=== PATIENT | male | born 1940 | race African-American/Black ===

== ENCOUNTER 2024-05-25 09:06 | Inpatient (IN) | payer OTHER ==
[2024-05-25 10:05] LABS: Hematocrit 32.6 % (38.8-50.0); Hemoglobin 10.2 g/dL (13.5-17.5); MDiff Complete? YES; Mean Corpuscular HGB CONC 31.3 g/dL (32.0-36.0); Mean Corpuscular Hemoglobin 20.6 pg (27.0-33.0); Platelet Count 135 10x3/uL (150-450); RBC Distribution Width 17.5 % (11.5-14.5); Red Blood Cell (RBC) Count 4.94 10x6/uL (4.32-5.72); White Blood Cell (WBC) Count 10.5 10x3/uL (3.5-10.5)
[2024-05-25 10:10] LABS: ALT (SGPT) 36 U/L (8-55); AST (SGOT) 30 U/L (5-34); Albumin 2.9 g/dL (3.4-4.8); Alkaline Phosphatase 108 U/L (40-110); Anion Gap 14 mmol/L (10-20); BUN (Urea Nitrogen) 20 mg/dL (8.4-25.7); Bilirubin, Total 1.9 mg/dL (0.2-1.2); Calc. Creatinine Clearance 0 mL/min (70-130); Carbon Dioxide 27 mmol/L (23-31); Chloride 102 mmol/L (98-107); Estimated GFR 42; Glucose 117 mg/dL (83-110); Magnesium 1.7 mg/dL (1.6-2.6); Potassium 2.8 mmol/L (3.5-5.1); Protein, Total 6.9 g/dL (5.8-8.1); Sodium 140 mmol/L (136-145)
[2024-05-25 10:13] LABS: Troponin I 0.034 ng/mL (< 0.028)
[2024-05-25 10:20] LABS: Lymphocytes 7 % (21-51); Monocytes 4 % (0-10); Neutrophil 83 % (42-75); Reactive Lymphocytes 6 % (0-10)
[2024-05-25 10:23] LABS: Anisocytosis SLIGHT = 6-15 cells (100X) (0-5/hpf); Giant Platelets SLIGHT HPF (0-5); Hypochromia SLIGHT = 6-15 cells (100X) (0-5/hpf); Large Platelets SLIGHT (None Seen); Microcytosis SLIGHT = 6-15 cells (100X) (0-5/hpf); Ovalocytes SLIGHT = 2-5 cells (100X) (0-1/hpf); Poikilocytosis SLIGHT = 6-15 cells (100X) (0-5/hpf)
[2024-05-25 10:24] LABS: Platelet Adequacy Comment Appears Decreased
[2024-05-25] MEDS ORDERED: Potassium Chloride 20 MEQ TAB ONE (10:30)
[2024-05-25 11:37] LABS: Bilirubin Neg (Negative); Blood, Urine 10 (Negative); Clarity Slightly Cloudy (Clear); Glucose, Urine (Dipstick) Normal (Negative); Ketone, Urine Negative (Negative); Leukocyte 500 (Negative); Nitrite Negative (Negative); Protein, Urine (Dipstick) 15 mg/dl (Neg-Trace); Specific Gravity, Urine 1.015 (1.005-1.030)
[2024-05-25] MEDS ORDERED: LevoFLOXacin 750 mg/D5W 150 ml Premix Bag ONE (11:49)
[2024-05-25 11:55] LABS: Bacteria/HPF 4+ HPF (None Seen); CAUTI Indications for Culture Alt mental st,lethar; RBC/HPF 0-3 HPF (0-3); Squamous Epithelial 0-3 HPF (0-3); Transitional Epithelial 0-3 HPF (None Seen); WBC/HPF Greater than 50 HPF (0-3)
[2024-05-25 11:56] LABS: Urine Culture Reflex Yes Yes
[2024-05-25] MEDS ORDERED: Senokot S 8.6-50 MG TAB PO PRN (12:45)
[2024-05-25] MEDS ORDERED: Sodium Chloride 0.9% 1,000 ML IV SCH (12:45)
[2024-05-25] MEDS ORDERED: traMADol HCl 50 MG TAB PO PRN (12:45)
[2024-05-25] MEDS ORDERED: Glucagon 1 MG/ML KIT IM PRN (13:22)
[2024-05-25] MEDS ORDERED: Insulin Lispro 100 UNIT/ML 10 ML VIAL SC PRN (13:22)
[2024-05-25] MEDS ORDERED: Dextrose 50% Abboject 50 ML SYRINGE SLOW IVP PRN (13:22)
[2024-05-25] MEDS ORDERED: Dextrose 5% in Water 1,000 ML IV PRN (13:22)
[2024-05-25 14:17] LABS: Troponin I 0.032 ng/mL (< 0.028)
[2024-05-25] MEDS: NS 0.9% w/ 40 MEQ KCL 1,000 ML IV SCH (15:03)
[2024-05-25 15:39] VITALS: BMI 24.4
[2024-05-25 17:36] LABS: Troponin I 0.042 ng/mL (< 0.028)
[2024-05-25] MEDS ORDERED: Sterile Water 10 ML VIAL FS PRN (22:00)
[2024-05-25] MEDS: Famotidine 20 MG TAB PO SCH (22:00)
[2024-05-25] MEDS: Sterile Water 10 ML ONE (23:20)
[2024-05-25] MEDS: Ziprasidone 20 MG VIAL IM SCH (23:23)
[2024-05-26 04:00] LABS: #Basophils 0.02 10x3/uL (0.0-0.2); #Eosinophils 0.03 10x3/uL (0.0-0.5); #Monocytes 0.86 10x3/uL (0.0-1.1); #Neutrophils 8.06 10x3/uL (1.5-8.4); %Basophils 0.2 % (0.0-2.0); %Eosinophils 0.3 % (0.0-6.0); %Lymphocytes 8.3 % (18.0-47.0); %Monocytes 8.7 % (0.0-10.0); %Neutrophils 82.1 % (40.0-75.0); Hematocrit 33.2 % (38.8-50.0); Hemoglobin 10.5 g/dL (13.5-17.5); Mean Corpuscular HGB CONC 31.6 g/dL (32.0-36.0); Mean Corpuscular Hemoglobin 20.8 pg (27.0-33.0); Mean Corpuscular Volume 65.6 fL (81.2-95.1); Platelet Count 126 10x3/uL (150-450); RBC Distribution Width 17.2 % (11.5-14.5); Red Blood Cell (RBC) Count 5.06 10x6/uL (4.32-5.72); White Blood Cell (WBC) Count 9.8 10x3/uL (3.5-10.5)
[2024-05-26 04:12] LABS: Anion Gap 14 mmol/L (10-20); BUN (Urea Nitrogen) 17 mg/dL (8.4-25.7); Calc. Creatinine Clearance 50 mL/min (70-130); Calcium 10.3 mg/dL (7.8-10.44); Carbon Dioxide 24 mmol/L (23-31); Chloride 102 mmol/L (98-107); Estimated GFR 60; Glucose 116 mg/dL (83-110); Magnesium 1.5 mg/dL (1.6-2.6); Potassium 3.1 mmol/L (3.5-5.1); Sodium 137 mmol/L (136-145)
[2024-05-26 04:23] LABS: Hypochromia SLIGHT = 6-15 cells (100X) (0-5/hpf); Microcytosis MODERATE=15-30 cells (100X) (0-5/hpf)
[2024-05-26 04:24] LABS: Reflex for Review?? YES
[2024-05-26 04:28] LABS: Platelet Adequacy Comment Appears Decreased
[2024-05-26 04:29] LABS: Schistocytes SLIGHT = 2-5 cells (100X) (0-1/hpf); Spherocytes SLIGHT = 1-5 cells (100X) (None Seen)
[2024-05-26] MEDS ORDERED: Magnesium Sulfate/D5W 1 GM/100 ML BAG IVPB SCH (06:00)
[2024-05-26] MEDS: Magnesium Sulfate/D5W 1 GM in Premix 1 BAG IVPB SCH (06:48)
[2024-05-26] MEDS: Potassium Chloride 20 MEQ TAB PO SCH (07:42)
[2024-05-26] MEDS: AMPicillin 1 GM in Sodium Chloride 0.9% 100 ML IVPB SCH (12:39)
[2024-05-26] MEDS ORDERED: Melatonin 3 MG TAB PO PRN (23:30)
[2024-05-27] MEDS: Lorazepam 2 MG/ML VIAL SLOW IVP SCH (00:15)
[2024-05-27] MEDS: AMPicillin 1 GM in Sodium Chloride 0.9% 100 ML IVPB SCH (03:07)
[2024-05-27 09:06] LABS: ALT (SGPT) 31 U/L (8-55); AST (SGOT) 32 U/L (5-34); Albumin 2.5 g/dL (3.4-4.8); Alkaline Phosphatase 81 U/L (40-110); Anion Gap 13 mmol/L (10-20); BUN (Urea Nitrogen) 14 mg/dL (8.4-25.7); Bilirubin, Total 1.4 mg/dL (0.2-1.2); Calc. Creatinine Clearance 52 mL/min (70-130); Calcium 10.4 mg/dL (7.8-10.44); Carbon Dioxide 24 mmol/L (23-31); Chloride 102 mmol/L (98-107); Estimated GFR 63; Globulin 4.1 g/dL (2.4-3.5); Glucose 89 mg/dL (83-110); Magnesium 1.7 mg/dL (1.6-2.6); Phosphorus 2.2 mg/dL (2.3-4.7); Potassium 3.4 mmol/L (3.5-5.1); Protein, Total 6.6 g/dL (5.8-8.1); Sodium 136 mmol/L (136-145)
[2024-05-27] MEDS ORDERED: LevoFLOXacin 750 mg/D5W 750 MG in Premix 1 BAG IVPB SCH (13:00)
[2024-05-27] MEDS: Magnesium 2 GM/50 ML(in water) 2 GM in Premix 1 BAG IVPB SCH (13:28)
[2024-05-27] MEDS: Dextrose 5%-Lactated Ringers 1,000 ML IV SCH (13:28)
[2024-05-27] MEDS: Potassium Phosphate 30 MMOL in Sodium Chloride 0.9% 250 ML 250 ML IVPB SCH (14:53)
[2024-05-27] MEDS: Amiodarone 200 MG TAB PO SCH (21:59)
[2024-05-27] MEDS: Senokot S 8.6-50 MG TAB PO SCH (22:13)
[2024-05-27] MEDS: Apixaban 2.5 MG TAB PO SCH (22:13)
[2024-05-28 05:42] LABS: Hematocrit 29.4 % (38.8-50.0); Hemoglobin 9.6 g/dL (13.5-17.5); Mean Corpuscular HGB CONC 32.7 g/dL (32.0-36.0); Mean Corpuscular Hemoglobin 21.1 pg (27.0-33.0); Mean Corpuscular Volume 64.8 fL (81.2-95.1); Red Blood Cell (RBC) Count 4.54 10x6/uL (4.32-5.72); White Blood Cell (WBC) Count 7.9 10x3/uL (3.5-10.5)
[2024-05-28 05:43] LABS: Platelet Count 172 10x3/uL (130-400); RBC Distribution Width 37.6 % (11.5-14.5)
[2024-05-28 06:53] LABS: #Basophils 0.02 10x3/uL (0.0-0.2); #Eosinophils 0.29 10x3/uL (0.0-0.5); #Neutrophils 5.28 10x3/uL (1.5-8.4); %Basophils 0.3 % (0.0-2.0); %Eosinophils 3.7 % (0.0-6.0); %Monocytes 10.1 % (0.0-10.0); %Neutrophils 66.6 % (40.0-75.0); Phosphorus 2.8 mg/dL (2.3-4.7)
[2024-05-28] MEDS ORDERED: Heparin 5,000 UNITS/ML VIAL SC SCH (09:00)
[2024-05-28] MEDS: Clopidogrel Bisulfate 75 MG TAB PO SCH (09:45)
[2024-05-28 10:07] LABS: ALT (SGPT) 34 U/L (8-55); AST (SGOT) 35 U/L (5-34); Albumin 2.4 g/dL (3.4-4.8); Alkaline Phosphatase 75 U/L (40-110); Anion Gap 13 mmol/L (10-20); BUN (Urea Nitrogen) 13 mg/dL (8.4-25.7); Bilirubin, Total 1.1 mg/dL (0.2-1.2); Calc. Creatinine Clearance 60 mL/min (70-130); Calcium 9.8 mg/dL (7.8-10.44); Carbon Dioxide 21 mmol/L (23-31); Chloride 100 mmol/L (98-107); Estimated GFR 74; Globulin 3.9 g/dL (2.4-3.5); Glucose 90 mg/dL (83-110); Potassium 3.4 mmol/L (3.5-5.1); Protein, Total 6.3 g/dL (5.8-8.1); Sodium 131 mmol/L (136-145)
[2024-05-28] MEDS: Potassium Phosphate 30 MMOL in Sodium Chloride 0.9% 250 ML 250 ML IVPB SCH (11:21)
[2024-05-28] MEDS: D5 0.9% NS w/ 20 mEq KCl 1,000 ML IV SCH (17:59)
[2024-05-29 04:52] LABS: Hematocrit 28.4 % (38.8-50.0); Hemoglobin 9.2 g/dL (13.5-17.5); Mean Corpuscular HGB CONC 32.4 g/dL (32.0-36.0); Mean Corpuscular Hemoglobin 20.9 pg (27.0-33.0); Mean Corpuscular Volume 64.4 fL (81.2-95.1); Platelet Count 177 10x3/uL (150-450); RBC Distribution Width 16.5 % (11.5-14.5); Red Blood Cell (RBC) Count 4.41 10x6/uL (4.32-5.72); White Blood Cell (WBC) Count 7.9 10x3/uL (3.5-10.5)
[2024-05-29 05:08] LABS: Anion Gap 12 mmol/L (10-20); BUN (Urea Nitrogen) 10 mg/dL (8.4-25.7); Calc. Creatinine Clearance 56 mL/min (70-130); Calcium 8.8 mg/dL (7.8-10.44); Carbon Dioxide 23 mmol/L (23-31); Estimated GFR 69; Glucose 102 mg/dL (83-110); Magnesium 1.6 mg/dL (1.6-2.6)
[2024-05-29 05:09] LABS: Chloride 103 mmol/L (98-107); Potassium 3.6 mmol/L (3.5-5.1); Sodium 134 mmol/L (136-145)
[2024-05-29 06:08] LABS: #Basophils 0.02 10x3/uL (0.0-0.2); #Eosinophils 0.25 10x3/uL (0.0-0.5); #Monocytes 0.92 10x3/uL (0.0-1.1); %Basophils 0.3 % (0.0-2.0); %Eosinophils 3.2 % (0.0-6.0); %Lymphocytes 19.7 % (18.0-47.0); %Monocytes 11.7 % (0.0-10.0); %Neutrophils 64.6 % (40.0-75.0)
[2024-05-29] MEDS: Potassium Chloride 20 MEQ TAB PO SCH (10:27)
[2024-05-29] MEDS: Magnesium 2 GM/50 ML(in water) 2 GM in Premix 1 BAG IVPB SCH (10:27)
[2024-05-29] MEDS: Multivit, Therapeutic 1 TAB PO SCH (22:35)
[2024-05-29] MEDS: Cholecalciferol 1,000 UNITS (25 MCG) TAB PO SCH (22:36)
[2024-05-29] MEDS: Thiamine 100 MG TAB PO SCH (22:36)
[2024-05-29] MEDS: Cyanocobalamin (Vitamin B-12) 1,000 MCG TAB PO SCH (22:36)
[2024-05-30 06:27] LABS: Anion Gap 12 mmol/L (10-20); BUN (Urea Nitrogen) 7 mg/dL (8.4-25.7); Calc. Creatinine Clearance 56 mL/min (70-130); Calcium 9.4 mg/dL (7.8-10.44); Carbon Dioxide 23 mmol/L (23-31); Chloride 104 mmol/L (98-107); Estimated GFR 69; Glucose 99 mg/dL (83-110); Phosphorus 1.8 mg/dL (2.3-4.7); Potassium 3.7 mmol/L (3.5-5.1); Sodium 135 mmol/L (136-145)
[2024-05-30] MEDS: Folic Acid 1 MG TAB PO SCH (10:41)
[2024-05-30] MEDS: Potassium Phosphate 30 MMOL in Sodium Chloride 0.9% 250 ML 250 ML IVPB SCH (13:08)
[2024-05-31] MEDS: Acetaminophen 325 MG TAB PO PRN (12:53)
[2024-05-31 16:50] VITALS: BMI 24.4
[2024-06-01 07:34] LABS: #Basophils 0.02 10x3/uL (0.0-0.2); #Eosinophils 0.24 10x3/uL (0.0-0.5); #Monocytes 0.58 10x3/uL (0.0-1.1); %Basophils 0.4 % (0.0-2.0); %Eosinophils 4.5 % (0.0-6.0); %Lymphocytes 29.6 % (18.0-47.0); %Monocytes 10.9 % (0.0-10.0); %Neutrophils 54.2 % (40.0-75.0); Hematocrit 30.6 % (38.8-50.0); Hemoglobin 9.9 g/dL (13.5-17.5); Mean Corpuscular HGB CONC 32.4 g/dL (32.0-36.0); Mean Corpuscular Hemoglobin 20.6 pg (27.0-33.0); Mean Corpuscular Volume 63.6 fL (81.2-95.1); Platelet Count 261 10x3/uL (150-450); RBC Distribution Width 16.9 % (11.5-14.5); Red Blood Cell (RBC) Count 4.81 10x6/uL (4.32-5.72); White Blood Cell (WBC) Count 5.4 10x3/uL (3.5-10.5)
[2024-06-01 07:38] LABS: Anion Gap 13 mmol/L (10-20); BUN (Urea Nitrogen) 7 mg/dL (8.4-25.7); Calc. Creatinine Clearance 52 mL/min (70-130); Calcium 9.3 mg/dL (7.8-10.44); Carbon Dioxide 20 mmol/L (23-31); Chloride 105 mmol/L (98-107); Estimated GFR 63; Glucose 79 mg/dL (83-110); Magnesium 1.7 mg/dL (1.6-2.6); Phosphorus 2.4 mg/dL (2.3-4.7); Potassium 3.9 mmol/L (3.5-5.1); Sodium 134 mmol/L (136-145)
[2024-06-01] MEDS: Atorvastatin Calcium 40 MG TAB PO SCH (11:46)
[2024-06-01] MEDS: Dronabinol 2.5 MG CAP PO SCH (18:48)
[2024-06-02 04:46] LABS: #Basophils 0.03 10x3/uL (0.0-0.2); #Eosinophils 0.19 10x3/uL (0.0-0.5); #Monocytes 0.69 10x3/uL (0.0-1.1); #Neutrophils 3.18 10x3/uL (1.5-8.4); %Basophils 0.5 % (0.0-2.0); %Eosinophils 3.2 % (0.0-6.0); %Lymphocytes 31.3 % (18.0-47.0); %Monocytes 11.5 % (0.0-10.0); %Neutrophils 53.2 % (40.0-75.0); Hematocrit 29.1 % (38.8-50.0); Hemoglobin 9.4 g/dL (13.5-17.5); Mean Corpuscular HGB CONC 32.3 g/dL (32.0-36.0); Mean Corpuscular Hemoglobin 20.6 pg (27.0-33.0); Mean Corpuscular Volume 63.7 fL (81.2-95.1); Platelet Count 280 10x3/uL (150-450); RBC Distribution Width 16.5 % (11.5-14.5); Red Blood Cell (RBC) Count 4.57 10x6/uL (4.32-5.72); White Blood Cell (WBC) Count 6.1 10x3/uL (3.5-10.5)
[2024-06-02 05:00] LABS: Anion Gap 13 mmol/L (10-20); BUN (Urea Nitrogen) 11 mg/dL (8.4-25.7); Calc. Creatinine Clearance 47 mL/min (70-130); Calcium 9.4 mg/dL (7.8-10.44); Carbon Dioxide 22 mmol/L (23-31); Chloride 104 mmol/L (98-107); Estimated GFR 56; Glucose 89 mg/dL (83-110); Magnesium 2.3 mg/dL (1.6-2.6); Potassium 3.7 mmol/L (3.5-5.1); Sodium 135 mmol/L (136-145)
[2024-06-02] MEDS ORDERED: Dronabinol 2.5 MG CAP PO SCH (07:30)
[2024-06-02] MEDS: Dronabinol 2.5 MG CAP PO SCH (12:23)
[2024-06-02] MEDS: AMOXicillin 250 MG CAP PO SCH (22:05)
[2024-06-03 05:05] LABS: Anion Gap 15 mmol/L (10-20); BUN (Urea Nitrogen) 12 mg/dL (8.4-25.7); Calc. Creatinine Clearance 44 mL/min (70-130); Calcium 10.3 mg/dL (7.8-10.44); Carbon Dioxide 21 mmol/L (23-31); Chloride 104 mmol/L (98-107); Estimated GFR 51; Glucose 101 mg/dL (83-110); Magnesium 1.8 mg/dL (1.6-2.6); Sodium 136 mmol/L (136-145)
[2024-06-03 05:10] LABS: Hematocrit 30.6 % (38.8-50.0); Hemoglobin 9.7 g/dL (13.5-17.5); Mean Corpuscular HGB CONC 31.7 g/dL (32.0-36.0); Mean Corpuscular Hemoglobin 20.7 pg (27.0-33.0); Mean Corpuscular Volume 65.2 fL (81.2-95.1); Platelet Count 297 10x3/uL (150-450); RBC Distribution Width 16.7 % (11.5-14.5); Red Blood Cell (RBC) Count 4.69 10x6/uL (4.32-5.72); White Blood Cell (WBC) Count 8.7 10x3/uL (3.5-10.5)
[2024-06-03 05:11] LABS: #Basophils 0.02 10x3/uL (0.0-0.2); #Eosinophils 0.12 10x3/uL (0.0-0.5); #Monocytes 0.87 10x3/uL (0.0-1.1); #Neutrophils 5.77 10x3/uL (1.5-8.4); %Basophils 0.2 % (0.0-2.0); %Eosinophils 1.4 % (0.0-6.0); %Lymphocytes 21.4 % (18.0-47.0); %Neutrophils 66.7 % (40.0-75.0)
[2024-06-03] MEDS: QUEtiapine 100 MG TAB PO SCH (21:02)
[2024-06-04 05:13] LABS: Anion Gap 12 mmol/L (10-20); BUN (Urea Nitrogen) 13 mg/dL (8.4-25.7); Calc. Creatinine Clearance 45 mL/min (70-130); Carbon Dioxide 24 mmol/L (23-31); Chloride 103 mmol/L (98-107); Estimated GFR 52; Glucose 121 mg/dL (83-110); Potassium 3.7 mmol/L (3.5-5.1); Sodium 135 mmol/L (136-145)
[2024-06-04] MEDS ORDERED: Enoxaparin 60 MG (0.6 mL) SYRINGE SC SCH (11:30)
[2024-06-04] MEDS: Aspirin 300 MG Suppository PR SCH (12:32)
[2024-06-04] MEDS: Enoxaparin 80 MG (0.8 mL) SYRINGE SC SCH ×2 (12:35→20:45)
[2024-06-04] MEDS: AMPicillin 1 GM in Sodium Chloride 0.9% 100 ML IVPB SCH (12:36)
[2024-06-04] MEDS: D5 0.9% NS w/ 20 mEq KCl 1,000 ML IV SCH (18:46)
[2024-06-04] MEDS: Amiodarone 200 MG TAB PO SCH (20:44)
[2024-06-04] MEDS: QUEtiapine 25 MG TAB PO SCH (20:45)
[2024-06-05 10:55] VITALS: BP 144/77; TEMP 97.9
[2024-06-05] MEDS: Aspirin 300 MG Suppository PR SCH (11:08)
== END 2024-06-05 13:07 | DRG 689 ==
LOC: CSHERS 09:06 → CSHTELE 14:30
PROVIDERS: ADMIT Internal Medicine; ATTEND Family Medicine
DX: N39.0 Urinary tract infection, site not specified (principal); G93.41 Metabolic encephalopathy; N17.9 Acute kidney failure, unspecified; F03.918 Unspecified dementia, unspecified severity, with other behavioral disturbance; E87.1 Hypo-osmolality and hyponatremia; E11.22 Type 2 diabetes mellitus with diabetic chronic kidney disease; I12.9 Hypertensive chronic kidney disease with stage 1 through stage 4 chronic kidney disease, or unspecified chronic kidney disease; E87.6 Hypokalemia; E86.0 Dehydration; N18.30 Chronic kidney disease, stage 3 unspecified; E78.5 Hyperlipidemia, unspecified; Z98.890 Other specified postprocedural states; Z87.891 Personal history of nicotine dependence; N40.0 Benign prostatic hyperplasia without lower urinary tract symptoms; D63.1 Anemia in chronic kidney disease; Z79.01 Long term (current) use of anticoagulants; I48.91 Unspecified atrial fibrillation
CPT/HCPCS: 36415; 36416; 51701; 70450; 71045; 76770; 80048; 80053; 81001; 83735; 84100; 84484; 85025; 85060; 87040; 87077; 87086; 87186; 93005; 96374; J0290; J1650; J1956; J2060; J3475; J3480; J3486; J7050; Q0167